=== PATIENT | male | born 2000 | race African-American/Black ===

== ENCOUNTER 2020-03-03 16:52 | Emergency (ER) | payer MEDICAID, SELFPAY ==
--- NOTE | ~2020-03-03 | XR_ITS ---
XR hand LT min 3V DATE: 03/03/2020 17:17 INDICATION: Fall. Left hand pain laterally TECHNIQUE: 4 views COMPARISON: None FINDINGS: No fracture, dislocation, periosteal reaction or bone destruction. IMPRESSION: Negative Reviewed, dictated and finalized at location A. IMPRESSION: Negative
[2020-03-03 17:08] VITALS: BP 130/58; PULSE 74; RESP 18; TEMP 36.7; O2SAT 100
--- NOTE | 2020-03-03 17:09 | ED.UPPEXIN ---
HPI - Extremity Injury (Upper) General Chief Complaint: Extremity Injury, Upper Stated Complaint: left hand injury Time Seen by Provider: 03/03/20 17:15 Source: patient and RN notes reviewed Mode of arrival: ambulatory Limitations: no limitations History of Present Illness HPI narrative: 20-year-old male presents concern for left hand injury. Reports yesterday while he was playing basketball he fell landing on his left side, causing swelling, pain in the left hand under the fifth digit. He reports swelling, bruising. Denies any decreased range of motion or sensation. MD complaint: injury to: left and hand Related Data Allergies Allergy/AdvReac Type Severity Reaction Status Date / Time NKMA Allergy Unknown Uncoded 03/05/03 12:47 PEACHES-RASH Allergy Unknown Uncoded 03/05/03 12:47 Review of Systems Review of Systems: Narrative: CONSTITUTIONAL: Denies malaise, chills, sweats, or fever. SKIN: Reports left hand bruise MUSCULOSKELETAL: Reports left hand pain and swelling NEUROLOGIC: Denies numbness, weakness. All systems reviewed & are unremarkable except as noted in HPI and below PMFSH Comments At time of signature, agree with nursing past medical, surgical, social and family history. There is no relevant family history pertinent to the presenting complaint Exam Narrative: Exam Narrative: GENERAL: Well-appearing, well-nourished, and in no acute distress. HEAD: Normocephalic, atraumatic. EYES: PERRLA, conjunctivae clear NECK: Supple. CHEST: Speaks in full sentences. No respiratory distress. HEART: Regular rate and rhythm. Normal and equal peripheral pulses. EXTREMITIES: Left hand and digits of hand have normal strength and sensation. 5/5 strength with digit flexion, extension. Range of motion normal. No clubbing, cyanosis,noted. Edema and ecchymosis, mild tenderness noted to the lateral hand beneath the fifth digit. Skin intact. Normal digital cascade with flexion of fingers, median, ulnar and radial nerve intact. Normal sensation of each side of finger. Can perform 'okay' sign, 'cross over finger test of index and middle fingers' and 'thumbs up' sign. No scissoring. Normal thumb opposition. Good capillary refill and radial pulse. Distal capillary refill <3 seconds. NEURO: Alert and oriented x3. PSYCH: Normal mood and affect Course Course Emergency Course: Patient is aware of diagnosis, understands and agrees to treatment plan. Anticipatory guidance given. Patient agrees to follow-up as directed and is aware of reasons to seek care at the emergency department. Portions of this record may have been created with voice recognition software Vital Signs Vital signs: Vital Signs Temperature 98.0 F 03/03/20 17:08 Pulse Rate 74 03/03/20 17:08 Respiratory Rate 18 03/03/20 17:08 Blood Pressure 130/58 L 03/03/20 17:08 Pulse Oximetry 100 03/03/20 17:08 Temperature 98.0 F 03/03/20 17:08 Pulse Rate 74 03/03/20 17:08 Respiratory Rate 18 03/03/20 17:08 Blood Pressure 130/58 L 03/03/20 17:08 Pulse Oximetry 100 03/03/20 17:08 Reviewed. Pt has been instructed to follow up with his primary care provider within the next week regarding his elevated blood pressure today. MDM - Extremity Injury (Upper) MDM Narrative Medical decision making narrative: Patients injury and pain is consistent with musculoskeletal etiology. No signs of neurological or vascular compromise on exam. Compartments and tissues are soft without signs of compartment syndrome. Pain is felt appropriate for further evaluation on an outpatient basis. Differential Diagnosis Differential diagnosis: Likely sprain and strain of wrist, fracture of wrist and finger sprain Imaging Data My impression: Images reviewed, interpreted by radiologist, agree, see report. Radiologist's impression: XR hand LT min 3V DATE: 03/03/2020 17:17 INDICATION: Fall. Left hand pain laterally TECHNIQUE: 4 views COMPARISON: None FINDINGS: No fracture, dislo
== END 2020-03-03 17:32 | disposition home or self-care (01) ==
PROVIDERS: Emergency Provider Nurse Practitioner
DX: S69.92XA Unspecified injury of left wrist, hand and finger(s), initial encounter (principal); Y93.67 Activity, basketball; W18.39XA Other fall on same level, initial encounter; R03.0 Elevated blood-pressure reading, without diagnosis of hypertension
CPT/HCPCS: 73130; 99213; G0463